=== PATIENT | male | born 1970 | race Caucasian/White ===

== ENCOUNTER 2017-02-07 21:49 | Emergency (ER) | payer OTHER ==
[~2017-02-07] VITALS: Ht 185.4 cm; Wt 95.3 kg
[2017-02-07 23:15] VITALS: BP 143/105
[2017-02-07] MEDS ORDERED: CONTRAST GIVEN MC PRN (23:45)
[2017-02-07 23:47] LABS: BILIRUBIN,URINE NEGATIVE (NEG); GLUCOSE,URINE NEGATIVE (NEG); NITRITE,URINE NEGATIVE (NEG); PH,URINE 5.5; PROTEIN,URINE NEGATIVE (NEG-TRACE); UROBILINOGEN,URINE 0.2 mg/dL (0.2 mg/dL)
[2017-02-07 23:47] LABS: BASO % 0 % (0-3); EOS % 3 % (0-3); HEMOGLOBIN 14.2 g/dL (13.0-17.5); LYMPH # 3.2 x10^3/uL (1.0-4.8); LYMPH % 37 % (24-48); MEAN CORPUSCULAR HEMOGLOBIN 33 pg (25-35); MEAN CORPUSCULAR HGB CONC 35 g/dL (31-37); MEAN CORPUSCULAR VOLUME 95 fL (79-100); MONO % 6 % (0-9); NEUT % 53 % (31-73); PLATELET COUNT 217 x10^3/uL (140-400); RED BLOOD COUNT 4.33 x10^6/uL (4.30-5.70); WHITE BLOOD COUNT 8.4 x10^3/uL (4.0-11.0)
[2017-02-07 23:57] LABS: CALCIUM 8.3 mg/dL (8.5-10.1); CREATININE 1.2 mg/dL (0.7-1.3); GFR 64.9; POTASSIUM 4.3 mmol/L (3.5-5.1)
[2017-02-08] MEDS ORDERED: ONDANSETRON PF 4 MG/2 ML VIAL. IV ONE
[2017-02-08] MEDS ORDERED: IOHEXOL 300 MG/ML 75 ML VIAL IV ONE
[2017-02-08] MEDS ORDERED: IV NORMAL SALINE 1000ML BAG 1,000 ML IV ONE
[2017-02-08] MEDS ORDERED: fentaNYL PF VIAL 100 MCG/2 ML VIAL IV ONE
[2017-02-08 00:04] LABS: BACTERIA,URINE FEW /HPF (0-FEW); RBC,URINE 0 /HPF (0-2)
[2017-02-08 00:05] LABS: ALBUMIN 3.7 g/dL (3.4-5.0); ALBUMIN/GLOBULIN RATIO 1.1 (1.0-1.7); TOTAL BILIRUBIN 0.6 mg/dL (0.2-1.0)
[2017-02-08 00:05] LABS: SQUAMOUS EPITHELIAL CELL,UR OCC /LPF
--- NOTE | 2017-02-08 00:50 | RAD ---
CT abdomen and pelvis with contrast HISTORY: Abdominal pain TECHNIQUE: Helical CT imaging abdomen and pelvis acquired with 75 mL Omnipaque 300 intravenous contrast. HISTORY: Abdominal pain. Abdomen findings: Probable mild disc bulges L4-L5 and L5-S1. Lung bases unremarkable. Kidneys, adrenals, spleen, pancreas, gallbladder and liver are unremarkable. Sigmoid colon diverticulosis. Appendix is negative. No obstruction or inflammation GI tract. There is mild hypervascularity surrounding the stomach which is mildly thick-walled although this could be due to underdistention low-grade gastritis is not excluded no discrete mass lesion evident. No abdominal fluid or adenopathy. Pelvis findings: Bladder, prostate, rectum and bones are unremarkable. No fluid or adenopathy. IMPRESSION: 1. Mild hypervascularity surrounding the stomach, and mild wall thickening which could be due to underdistention although a low-grade gastritis would also be a possibility. 2. No bowel obstruction. The appendix is negative. Exposure: One or more of the following individualized dose reduction techniques were utilized for this examination: 1. Automated exposure control 2. Adjustment of the mA and/or kV according to patient size 3. Use of iterative reconstruction technique Electronically signed by: Jonathan Strickland MD (02/08/2017 12:47 AM) [facility]
--- NOTE | 2017-02-08 00:54 | PHYS DOC ---
Past Medical History Past Medical History: IBS Additional Past Medical Histor: NECK PAIN Past Surgical History: No Surgical History Alcohol Use: Occasionally Drug Use: Marijuana Adult General Chief Complaint Chief Complaint: ABDOMINAL PAIN HPI HPI Patient is a 46 year old M who presents with abdominal pain with nausea and vomiting. Patient states the past month has had intermittent abdominal pain with nausea and vomiting however the past 3 days the pain is gotten worse. Patient denies any fevers. Patient denies any chest pain or shortness of breath. Patient states he is unable to follow up with his PCP. Patient denies any diarrhea or dysuria. Patient is no other complaints. Review of Systems Review of Systems GEN: Denies fevers, chills, sweats HEENT: Denies blurred vision, sore throat CV: Denies chest pain RESP: Denies shortness of air, cough GI: Abdominal pain NEURO: Denies confusion, dizziness MSK: Denies weakness, joint pain/swelling Current Medications Current Medications Current Medications Medications (Trade) Dose Ordered Sig/Hui Start Time Stop Time Status Last Admin Dose Admin Fentanyl Citrate (Fentanyl 2ml Vial) 50 mcg 1X ONCE 02/08/17 00:00 02/08/17 00:01 DC 02/08/17 00:07 50 MCG Info (Do NOT chart on this entry -- for MONITORING) 1 each PRN DAILY PRN 02/07/17 23:45 02/09/17 23:44 Iohexol (Omnipaque 300 Mg/ml) 75 ml 1X ONCE 02/08/17 00:00 02/08/17 00:01 DC 02/08/17 00:22 75 ML Ondansetron HCl (Zofran) 4 mg 1X ONCE 02/08/17 00:00 02/08/17 00:01 DC 02/08/17 00:07 4 MG Sodium Chloride 1,000 ml @ 1,000 mls/hr 1X ONCE 02/08/17 00:00 02/08/17 00:59 DC 02/08/17 00:07 1,000 MLS/HR Allergies Allergies Allergies Coded Allergies Type Severity Reaction Last Updated Verified No Known Drug Allergies 02/07/17 No Physical Exam Physical Exam GEN.: No apparent distress. Alert and oriented. HEENT: Head is normocephalic, atraumatic NECK: Supple. LUNGS: CTAB. HEART: Irregular, S1, S2 present. Peripheral pulses intact ABDOMEN: Soft, mild generalized tenderness palpation, no point tenderness, no guarding no rebound tenderness, no distention. Positive bowel sounds. EXTREMITIES: Without any cyanosis. NEUROLOGIC: Normal speech, normal tone PSYCHIATRIC: Normal affect, normal mood. SKIN: No ulcerations Current Patient Data Vital Signs Vital Signs Date Time Temp Pulse Resp B/P (MAP) Pulse Ox O2 Delivery O2 Flow Rate FiO2 02/08/17 00:07 20 02/07/17 23:15 97.8 72 143/105 (118) 99 Room Air 97.8 Lab Values Laboratory Tests Test 02/07/17 22:45 02/07/17 23:19 Urine Collection Type Void Urine Color Yellow Urine Clarity Clear Urine pH 5.5 Urine Specific [place] 1.020 Urine Protein Negative mg/dL (NEG-TRACE) Urine Glucose (UA) Negative mg/dL (NEG) Urine Ketones (Stick) Negative mg/dL (NEG) Urine Blood Negative (NEG) Urine Nitrite Negative (NEG) Urine Bilirubin Negative (NEG) Urine Urobilinogen Dipstick 0.2 mg/dL (0.2 mg/dL) Urine Leukocyte Esterase Negative (NEG) Urine RBC 0 /HPF (0-2) Urine WBC 1-4 /HPF (0-4) Urine Squamous Epithelial Cells Occ /LPF Urine Bacteria Few /HPF (0-FEW) Urine Mucus Slight /LPF White Blood Count 8.4 x10^3/uL (4.0-11.0) Red Blood Count 4.33 x10^6/uL (4.30-5.70) Hemoglobin 14.2 g/dL (13.0-17.5) Hematocrit 41.0 % (39.0-53.0) Mean Corpuscular Volume 95 fL (79-100) Mean Corpuscular Hemoglobin 33 pg (25-35) Mean Corpuscular Hemoglobin Concent 35 g/dL (31-37) Red Cell Distribution Width 13.0 % (11.5-14.5) Platelet Count 217 x10^3/uL (140-400) Neutrophils (%) (Auto) 53 % (31-73) Lymphocytes (%) (Auto) 37 % (24-48) Monocytes (%) (Auto) 6 % (0-9) Eosinophils (%) (Auto) 3 % (0-3) Basophils (%) (Auto) 0 % (0-3) Neutrophils # (Auto) 4.5 x10^3uL (1.8-7.7) Lymphocytes # (Auto) 3.2 x10^3/uL (1.0-4.8) Monocytes # (Auto) 0.5 x10^3/uL (0.0-1.1) Eosinophils # (Auto) 0.2 x10^3/uL (0.0-0.7) Basophils # (Auto) 0.0 x10^3/uL (0.0-0.2) Sodium Level 143 mmol/L (136-145) Potassium Level 4.3 mmol/L (3.5-5.1) Chloride Level 109 mmol/L (98-107) H Carbon Dioxide Level 25 mmol/L (21-32) Anion Gap 9 (6-14) Blood Urea Nitrogen 23 mg/dL (8-26) Creatinine 1.2 mg/dL (0.7-1.3) Estimated GFR (Cockcroft-Gault) 64.9 BUN/Creatinine Ratio 19 (6-20) Glucose Level 91 mg/dL (70-99) Calcium Level 8.3 mg/dL (8.5-10.1) L Total Bilirubin 0.6 mg/dL (0.2-1.0) Aspartate Amino Transferase (AST) 21 U/L (15-37) Alanine Aminotransferase (ALT) 26 U/L (16-63) Alkaline Phosphatase 63 U/L (46-116) Total Protein 7.0 g/dL (6.4-8.2) Albumin 3.7 g/dL (3.4-5.0) Albumin/Globulin Ratio 1.1 (1.0-1.7) Lipase 400 U/L (73-393) H Laboratory Tests 02/07/17 23:19 Laboratory Tests 02/07/17 23:19 EKG EKG 0103: EKG shows sinus arrhythmia with a rate of 74 no STEMI [] Radiology/Procedures Radiology/Procedures CT scan of abdomen and pelvis IMPRESSION: 1. Mild hypervascularity surrounding the stomach, and mild wall thickening which could be due to underdistention although a low-grade gastritis would also be a possibility. 2. No bowel obstruction. The appendix is negative.[] Course & Med Decision Making Course & Med Decision Making Pertinent Labs and Imaging studies reviewed. (See chart for details) ED course: Patient was seen and examined emergency room CBC, CMP, UA, CT scan abdomen pelvis, EKG were ordered 0236: Updated patient on CT scan results and lab work and EKG findings. Patient states that he had an abnormal EKG at [facility] however they told to follow-up and he has not. Patient has no history of A. fib. Patient has no chest pain. Patient would like to go home and does not want admitted to the hospital. Patient states he does not want have any further cardiac workup done. Recommended he follow up his PCP to have an upper GI scope. MDM: After reviewing the chart, CC/HPI/PMH, physical exam, [lab results], [ radiological results], I do not believe the patient has intra-abdominal emergency warranting further workup and/or admission at this time. Patient is an abnormal EKG and recommended he follow-up with his PCP to have a Holter monitor done and further cardiac workup done since he does not want to pursue the emergency room at this time. Patient states she went to go home. Patient is stable for discharge. Additional verbal discharge instructions were provided to the patient and that if symptoms get worse or any new symptoms arise that are worrisome to the patient he is to return to the emergency room immediately [] Dragon Disclaimer Dragon Disclaimer This electronic medical record was generated, in whole or in part, using a voice recognition dictation system. Departure Departure Impression: Primary Impression: Abdominal pain Additional Impression: Sinus arrhythmia Disposition: 01 HOME, SELF-CARE Condition: IMPROVED Referrals: NO PCP (PCP) Patient Instructions: Abdominal Pain (Nonspecific) Additional Instructions: Please follow up with your family doctor within the next one to 2 days and return if symptoms increase Problem Qualifiers MINNIE ROJAS DO Feb 08, 2017 00:54
--- NOTE | 2017-02-08 10:09 | EKG ---
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
== END 2017-02-08 02:58 | disposition home or self-care (01) ==
LOC: ER 21:49
DX: R10.84 Generalized abdominal pain (principal); R11.2 Nausea with vomiting, unspecified; I49.8 Other specified cardiac arrhythmias; K58.9 Irritable bowel syndrome, unspecified; F12.10 Cannabis abuse, uncomplicated
CPT/HCPCS: 36415; 74177; 80053; 81001; 83690; 85027; 93005; 96361; 96374; 96375; 99285; J2405; J3010; J7030; Q9967

== ENCOUNTER 2019-03-28 11:42 | Emergency (ER) | payer BC, OTHER ==
[~2019-03-28] VITALS: Ht 182.9 cm; Wt 93.0 kg
[2019-03-28] MEDS ORDERED: ASPIRIN CHEWABLE 81 MG TABLET. PO ONE (12:15)
--- NOTE | 2019-03-28 12:26 | PHYS DOC ---
Past Medical History Past Medical History: IBS Additional Past Medical Histor: NECK PAIN Past Surgical History: No Surgical History Smoking: Cigarettes Alcohol Use: Occasionally Drug Use: Marijuana Adult General Chief Complaint Chief Complaint: CHEST PAIN HPI HPI Patient is a 48-year-old male who presents to the emergency department for evaluation. He states that for the past year or so, he has been having frequent episodes of chest discomfort, which have been waxing and waning, accompanied by general fatigue and weakness. Exertion does not necessarily exacerbated or pre cipitated his chest pain. He has not had any pleuritic pain or radiation of his pain, associated shortness of breath, nausea, vomiting, or diaphoresis. He states that stress and anxiety seemed to worsen his symptoms. He states his PCP referred to cardiology at , whom he saw this past Friday, and had an EKG and an echo which she reports were unremarkable, and he is scheduled for a stress test, although he states that there was an irregular heartbeat detected which meant that they needed to do the stress test as a nuclear stress test, according to the patient. He states that he began having a recurrent episode of his recurrent chest discomfort and malaise and low energy, on , and his discomfort and malaise have persisted, and he decided to come to the emergency department because he has not been seen by a physician in the past while he is actually having one of these episodes. There are no alleviating or exacerbating factors to the patient's symptoms, and this current episode of chest discomfort is no different than the discomfort he has been experiencing over the past year. He denies any pain with position changes, worsening pain with laying flat or sitting upright, or any other associated symptoms except as noted above. Assuming a negative troponin, his HEART score is a 2. Review of Systems Review of Systems Constitutional: Denies fever or chills [] Eyes: Denies change in visual acuity, redness, or eye pain [] HENT: Denies nasal congestion or sore throat [] Respiratory: Denies cough or shortness of breath [] Cardiovascular: No additional information not addressed in HPI [] GI: Denies abdominal pain, nausea, vomiting, bloody stools or diarrhea [] : Denies dysuria or hematuria [] Musculoskeletal: Denies back pain or joint pain [] Integument: Denies rash or skin lesions [] Neurologic: Denies headache, focal weakness or sensory changes [] Endocrine: Denies polyuria or polydipsia [] All other systems were reviewed and found to be within normal limits, except as documented in this note. Current Medications Current Medications Current Medications Medications (Trade) Dose Ordered Sig/Hui Start Time Stop Time Status Last Admin Dose Admin Aspirin (Children'S Aspirin) 324 mg 1X ONCE 03/28/19 12:15 03/28/19 12:19 DC 03/28/19 12:35 324 MG Allergies Allergies Allergies Coded Allergies Type Severity Reaction Last Updated Verified No Known Drug Allergies 02/07/17 No Physical Exam Physical Exam PHYSICAL EXAM: CONSTITUTIONAL: Well developed, well nourished HEAD: normocephalic, atraumatic EENT: PERRL, EOMI. Conjunctivae normal color, sclerae non-icteric; moist mucous membranes. NECK: Supple, non-tender; no meningismus. LUNGS: Lungs CTA, breathing even and unlabored. Normal air movement. HEART: Regular rate and rhythm, no murmur CHEST: No deformity; non-tender ABDOMEN: The abdomen is soft, and non-tender, no masses or bruits. EXTREM: Normal ROM; no deformity, no calf tenderness. Normal pulses palpable in all extremities. There is no pedal edema. SKIN: No rash; no diaphoresis NEURO: Alert; normal speech and cognition; CN's grossly intact; strength grossly intact without focal deficit. BACK: No CVA TTP. Current Patient Data Vital Signs Vital Signs Date Time Temp Pulse Resp B/P (MAP) Pulse Ox O2 Delivery O2 Flow Rate FiO2 03/28/19 11:50 98.0 88 16 141/87 (105) 97 Room Air 98.0 Lab Values Laboratory Tests Test 03/28/19 12:00 White Blood Count 6.7 x10^3/uL (4.0-11.0) Red Blood Count 4.75 x10^6/uL (4.30-5.70) Hemoglobin 15.6 g/dL (13.0-17.5) Hematocrit 45.3 % (39.0-53.0) Mean Corpuscular Volume 95 fL (79-100) Mean Corpuscular Hemoglobin 33 pg (25-35) Mean Corpuscular Hemoglobin Concent 34 g/dL (31-37) Red Cell Distribution Width 13.0 % (11.5-14.5) Platelet Count 221 x10^3/uL (140-400) Neutrophils (%) (Auto) 50 % (31-73) Lymphocytes (%) (Auto) 39 % (24-48) Monocytes (%) (Auto) 7 % (0-9) Eosinophils (%) (Auto) 4 % (0-3) H Basophils (%) (Auto) 1 % (0-3) Neutrophils # (Auto) 3.3 x10^3/uL (1.8-7.7) Lymphocytes # (Auto) 2.6 x10^3/uL (1.0-4.8) Monocytes # (Auto) 0.5 x10^3/uL (0.0-1.1) Eosinophils # (Auto) 0.2 x10^3/uL (0.0-0.7) Basophils # (Auto) 0.0 x10^3/uL (0.0-0.2) Sodium Level 144 mmol/L (136-145) Potassium Level 3.8 mmol/L (3.5-5.1) Chloride Level 109 mmol/L (98-107) H Carbon Dioxide Level 27 mmol/L (21-32) Anion Gap 8 (6-14) Blood Urea Nitrogen 21 mg/dL (8-26) Creatinine 1.3 mg/dL (0.7-1.3) Estimated GFR (Cockcroft-Gault) 58.7 BUN/Creatinine Ratio 16 (6-20) Glucose Level 124 mg/dL (70-99) H Calcium Level 9.1 mg/dL (8.5-10.1) Magnesium Level 2.0 mg/dL (1.8-2.4) Total Bilirubin 0.3 mg/dL (0.2-1.0) Aspartate Amino Transferase (AST) 15 U/L (15-37) Alanine Aminotransferase (ALT) 21 U/L (16-63) Alkaline Phosphatase 66 U/L (46-116) Troponin I Quantitative < 0.017 ng/mL (0.000-0.055) CU-Hjq-D-Type Natriuretic Peptide 89 pg/mL (0-124) Total Protein 7.1 g/dL (6.4-8.2) Albumin 3.7 g/dL (3.4-5.0) Albumin/Globulin Ratio 1.1 (1.0-1.7) Thyroid Stimulating Hormone (TSH) 1.540 uIU/mL (0.358-3.74) Free Thyroxine 0.93 ng/dL (0.76-1.46) Laboratory Tests 03/28/19 12:00 Laboratory Tests 03/28/19 12:00 EKG EKG [Normal sinus rhythm with a normal rate, normal axis, normal intervals, there are no acute ischemic ST/T changes.. Questionable and subtle SD depression is present in the inferior leads] Repeat EKG, done at 1:00 PM does not show any changes. Radiology/Procedures Radiology/Procedures [PROCEDURE: PORTABLE CHEST 1V Exam performed: One view chest. Indication: Chest pain Date of Service: 03/28/2019 12:13 PM Comparison: None available. Single AP upright portable view chest findings: Cardiomediastinal silhouette is within limits of normal. No acute infiltrates, effusion or pneumothorax is detected. The bony structures are normal. Impression: No acute cardiopulmonary process is detected. ] Course & Med Decision Making Course & Med Decision Making Pertinent Labs and Imaging studies reviewed. (See chart for details) [] 1:05 PM: The patient's condition remains stable. I am not highly suspicious he is having an acute coronary syndrome, given his chronic recurrent episodes of chest pain over a year. EKG �2 will be obtained, has been obtained, negative for acute coronary syndrome. I had an extensive discussion with the patient about the limitations of ER cardiac evaluation in definitively ruling out acute coronary syndrome. We discussed limitation of the ER evaluation and a singe ED troponin in r/o AMI, and the risks involved in missed diagnosis of acute coronary syndrome including or permanent debility. I discussed overnight observation for further formal cardiac evaluation to rule out acute coronary syndrome. After expressing understanding of the limitations of ER cardiac evaluation, as well as the risks of missed diagnosis, the patient declined further cardiac evaluation at this time. The patient was mentally competent, and given opportunity to ask questions about the diagnosis and recommended plan of care. I stressed the importance of outpatient follow-up, and returning to the emergency department for new or worsening symptoms, or if the patient is agre eable to undergo further cardiac evaluation. 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 Although pericarditis is possible, given the recent normal echo I am doubtful that this is clinically present. Dragon Disclaimer Dragon Disclaimer This electronic medical record was generated, in whole or in part, using a voice recognition dictation system. Departure Departure Impression: Primary Impression: Atypical chest pain Additional Impression: Malaise Disposition: 01 HOME, SELF-CARE Condition: STABLE Referrals: NO PCP (PCP) Patient Instructions: Chest Pain (Nonspecific), Weakness Additional Instructions: Continue taking your previously prescribed medications including a baby aspirin once daily. Return to medical care for any new or worsening symptoms, development of increasing chest pain, shortness of breath, or any other new or worsening symptoms. Problem Qualifiers MARK BRAVO MD Mar 28, 2019 12:26
[2019-03-28 12:27] LABS: BASO % 1 % (0-3); EOS # 0.2 x10^3/uL (0.0-0.7); EOS % 4 % (0-3); HEMATOCRIT 45.3 % (39.0-53.0); HEMOGLOBIN 15.6 g/dL (13.0-17.5); LYMPH # 2.6 x10^3/uL (1.0-4.8); LYMPH % 39 % (24-48); MEAN CORPUSCULAR HEMOGLOBIN 33 pg (25-35); MEAN CORPUSCULAR HGB CONC 34 g/dL (31-37); MEAN CORPUSCULAR VOLUME 95 fL (79-100); MONO # 0.5 x10^3/uL (0.0-1.1); MONO % 7 % (0-9); NEUT # 3.3 x10^3/uL (1.8-7.7); NEUT % 50 % (31-73); PLATELET COUNT 221 x10^3/uL (140-400); RED BLOOD COUNT 4.75 x10^6/uL (4.30-5.70); WHITE BLOOD COUNT 6.7 x10^3/uL (4.0-11.0)
[2019-03-28 12:40] LABS: CALCIUM 9.1 mg/dL (8.5-10.1); CREATININE 1.3 mg/dL (0.7-1.3); GFR 58.7; POTASSIUM 3.8 mmol/L (3.5-5.1)
--- NOTE | 2019-03-28 12:41 | RAD ---
Exam performed: One view chest. Indication: Chest pain Date of Service: 03/28/2019 12:13 PM Comparison: None available. Single AP upright portable view chest findings: Cardiomediastinal silhouette is within limits of normal. No acute infiltrates, effusion or pneumothorax is detected. The bony structures are normal. Impression: No acute cardiopulmonary process is detected. Electronically signed by: Kalina Nair MD (03/28/2019 12:38 PM) [facility]
[2019-03-28 12:45] LABS: ALBUMIN 3.7 g/dL (3.4-5.0); ALBUMIN/GLOBULIN RATIO 1.1 (1.0-1.7); TOTAL BILIRUBIN 0.3 mg/dL (0.2-1.0); TOTAL PROTEIN 7.1 g/dL (6.4-8.2)
[2019-03-28 12:53] LABS: FREE T4 0.93 ng/dL (0.76-1.46); THYROID STIM HORMONE (TSH) 1.54 uIU/mL (0.358-3.74)
[2019-03-28 13:30] VITALS: BP 127/85
--- NOTE | 2019-03-29 06:21 | EKG ---
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
--- NOTE | 2019-03-29 06:25 | EKG ---
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
== END 2019-03-28 13:51 | disposition home or self-care (01) ==
LOC: ER 11:42
DX: R07.89 Other chest pain (principal); R53.81 Other malaise; R53.1 Weakness; F17.210 Nicotine dependence, cigarettes, uncomplicated; Z79.82 Long term (current) use of aspirin
CPT/HCPCS: 36415; 71045; 80053; 83735; 83880; 84439; 84443; 84484; 85025; 93005; 99285